=== PATIENT | female | born 1945 | race Caucasian/White ===

== ENCOUNTER 2017-09-04 20:51 | Inpatient (IN) | payer BC, MEDICARE ==
[~2017-09-04] VITALS: Ht 162.6 cm; Wt 53.1 kg
[~2017-09-04 20:51] MED LIST: BACL10TA PO; DULO30CA2 PO; LEVO125T8 PO; TIZA2TAB4 PO
[2017-09-04] MEDS ORDERED: ONDANSETRON 4 MG/2 ML VIAL IV ONE (22:00)
[2017-09-04] MEDS ORDERED: HYDROMORPHONE 1 MG/1 ML DISP.SYRIN IV ONE (22:00)
[2017-09-04 22:18] LABS: BASOPHILS # (AUTO) 0.1 K/uL (0.0-8.0); BASOPHILS % (AUTO) 2.2 % (0.0-2.0); EOSINOPHILS # (AUTO) 0.1 K/uL (0.0-0.7); EOSINOPHILS % (AUTO) 1.6 % (0.0-7.0); HEMATOCRIT 39.1 % (31.2-41.9); HEMOGLOBIN 13.4 g/dL (10.9-14.3); LYMPHOCYTES % (AUTO) 20.5 % (20.5-51.5); MEAN CORPUSCULAR HGB CONC 34 g/dL (32.3-35.6); MEAN CORPUSCULAR VOLUME 90.6 fL (75.5-95.3); MONOCYTES # (AUTO) 0.5 K/uL (2.0-10.0); MONOCYTES % (AUTO) 10.8 % (0.0-11.0); NEUTROPHILS # (AUTO) 3.3 K/uL (1.8-8.9); NEUTROPHILS % (AUTO) 64.9 % (38.5-71.5); PLATELET COUNT (AUTO) 202 K/uL (179-408); RED BLOOD CELL COUNT(AUTO) 4.32 MIL/uL (3.63-4.92); WHITE BLOOD COUNT (AUTO) 5.1 K/uL (3.8-11.8)
[2017-09-04 22:24] LABS: CARBON DIOXIDE 26 mmol/L (21-32); CHLORIDE 103 mmol/L (98-107); CREATININE 0.6 mg/dL (0.6-1.3); GLUCOSE 97 mg/dL (74-106); POTASSIUM 4.3 mmol/L (3.5-5.1); UREA NITROGEN, BLOOD 13 mg/dL (7-18)
[2017-09-04] MEDS ORDERED: ONDANSETRON 4 MG/2 ML VIAL ONE (22:29)
[2017-09-04] MEDS ORDERED: HYDROMORPHONE 1 MG/1 ML DISP.SYRIN ONE (22:29)
[2017-09-04 22:35] LABS: ALANINE AMINOTRANSFERASE 31 U/L (14-59); ALKALINE PHOSPHATASE 82 U/L (50-136); ASPARTATE AMINOTRANSFERASE 19 U/L (15-37); BILIRUBIN,DIRECT < 0.1 mg/dL (0.0-0.2); BILIRUBIN,TOTAL 0.2 mg/dL (0.2-1.0); LIPASE 173 U/L (73-393); TOTAL PROTEIN, SERUM 7.9 g/dL (6.4-8.2)
[2017-09-04] MEDS ORDERED: MAGNESIUM CITRATE 296 ML BOTTLE PO ONE (22:45)
[2017-09-04] MEDS ORDERED: MAGNESIUM HYDROXIDE 30 ML LIQUID UDC PO ONE (22:45)
[2017-09-04] MEDS ORDERED: MINERAL OIL FLEET ENEMA 133 ML BOTTLE RC ONE ×2 (22:45→23:06)
[2017-09-04] MEDS ORDERED: MAGNESIUM HYDROXIDE 30 ML LIQUID UDC ONE (23:06)
[2017-09-04] MEDS ORDERED: MAGNESIUM CITRATE 296 ML BOTTLE ONE (23:06)
[2017-09-05] MEDS ORDERED: MINERAL OIL FLEET ENEMA 133 ML BOTTLE RC ONE ×4 (00:30→06:53)
[2017-09-05 02:51] VITALS: BP 135/72
--- NOTE | 2017-09-05 02:55 | NUR ---
nsg: pt received a/o x 4 fr er via [facility] with dx of constipation. has hx of als. hasnt had bm x 4 days fr [facility]. v/s stable. cont to monitor.
--- NOTE | 2017-09-05 02:58 | NUR ---
Pt. admitted to [facility], under care of Cherise Silva [place]ongs List completed
--- NOTE | 2017-09-05 03:00 | NUR ---
nsg: paged Cherise Silva for admitting orders. awaiting response.
[2017-09-05] MEDS ORDERED: MAGNESIUM HYDROXIDE 30 ML LIQUID UDC PO PRN (04:15)
[2017-09-05] MEDS ORDERED: ZOLPIDEM 5 MG TABLET PO PRN (04:15)
[2017-09-05] MEDS ORDERED: Z GUARD REMEDY PASTE 57 GM TUBE TOP PRN (04:15)
[2017-09-05] MEDS ORDERED: ONDANSETRON 4 MG/2 ML VIAL IV PRN (04:15)
[2017-09-05 05:02] VITALS: BP 134/75
--- NOTE | 2017-09-05 06:06 | NUR ---
NSG: UNABLE TO GIVE FLEET MINERAL OIL ENEMA, MED NOT AVAILABLE.
[2017-09-05] MEDS: ACETAMINOPHEN 325 MG TABLET PO PRN ×2 (09:03→15:22)
[2017-09-05] MEDS: SENNOSIDES/DOCUSATE SODIUM TABLET PO SCH ×2 (09:03→09:10)
[2017-09-05 11:40] VITALS: BP 117/61
[2017-09-05] MEDS ORDERED: MAGNESIUM CITRATE 296 ML BOTTLE PO ONE (12:45)
[2017-09-05] MEDS ORDERED: GLYCERIN ADULT RECTAL SUPP EACH RC ONE ×3 (12:45→22:08)
[2017-09-05 16:10] VITALS: BP 137/74
[2017-09-05 19:00] VITALS: BP 138/69
--- NOTE | 2017-09-05 19:05 | NUR ---
PT IS IN BED RESTING WITH NO SIGNS OF RESPIRATORY DISTRESS. PT HAS NOT HAD A BM, REPORT GIVEN TO [facility]. PENDING FAX FROM [facility] IN REGARDS TO MEDICATION.
[2017-09-05] MEDS ORDERED: BACLOFEN 10 MG TABLET PO SCH (21:30)
[2017-09-05] MEDS ORDERED: Medication Not On Formulary EA (Tizanidine Hcl 2 MG) PO SCH (21:30)
[2017-09-05] MEDS: TIZANIDINE HCL 4 MG TABLET PO SCH (21:56)
[2017-09-05] MEDS ORDERED: TIZANIDINE HCL 4 MG TABLET ONE (22:09)
[2017-09-06 04:00] VITALS: BP 135/76
[2017-09-06] MEDS: TIZANIDINE HCL 4 MG TABLET PO SCH (06:00)
--- NOTE | 2017-09-06 06:00 | NUR ---
PT HAD another dose of laxative supp, then finally had a large bm, incontinent. muscle relaxant meds given, slept well,vss,afebrile, will continue to monitor,kept clean and dry.
[2017-09-06 06:34] LABS: BASOPHILS # (AUTO) 0.1 K/uL (0.0-8.0); BASOPHILS % (AUTO) 1.1 % (0.0-2.0); EOSINOPHILS # (AUTO) 0.1 K/uL (0.0-0.7); HEMATOCRIT 37.9 % (31.2-41.9); HEMOGLOBIN 12.8 g/dL (10.9-14.3); LYMPHOCYTES % (AUTO) 16.6 % (20.5-51.5); MEAN CORPUSCULAR HEMOGLOBIN 30.9 uug (24.7-32.8); MEAN CORPUSCULAR HGB CONC 34 g/dL (32.3-35.6); MEAN CORPUSCULAR VOLUME 91.4 fL (75.5-95.3); MONOCYTES # (AUTO) 0.7 K/uL (2.0-10.0); MONOCYTES % (AUTO) 10.6 % (0.0-11.0); NEUTROPHILS # (AUTO) 4.4 K/uL (1.8-8.9); NEUTROPHILS % (AUTO) 70.7 % (38.5-71.5); PLATELET COUNT (AUTO) 186 K/uL (179-408); RED BLOOD CELL COUNT(AUTO) 4.15 MIL/uL (3.63-4.92); WHITE BLOOD COUNT (AUTO) 6.2 K/uL (3.8-11.8)
[2017-09-06 08:17] LABS: CARBON DIOXIDE 27 mmol/L (21-32); CHLORIDE 104 mmol/L (98-107); CHOLESTEROL 172 mg/dL (<200); CREATININE 0.7 mg/dL (0.6-1.3); GLUCOSE 103 mg/dL (74-106); HDL CHOLESTEROL 83 mg/dL (40-60); MAGNESIUM 2.8 mg/dL (1.8-2.4); PHOSPHOROUS 3.2 mg/dL (2.5-4.9); POTASSIUM 4.3 mmol/L (3.5-5.1); TRIGLYCERIDES 37 MG/DL (30-150); UREA NITROGEN, BLOOD 13 mg/dL (7-18)
[2017-09-06] MEDS ORDERED: DULOXETINE 30 MG CAPSULE.DR PO SCH (09:00)
[2017-09-06] MEDS ORDERED: LEVOTHYROXINE SODIUM 125 MCG TABLET PO SCH (09:00)
[2017-09-06 09:12] LABS: THYROID STIMULATING HORMONE 0.095 mIU/mL (0.358-3.740)
[2017-09-06] MEDS: SENNOSIDES/DOCUSATE SODIUM TABLET PO SCH (09:38)
[2017-09-06] MEDS: ACETAMINOPHEN 325 MG TABLET PO PRN (09:59)
[2017-09-06] MEDS ORDERED: TIZA4CAP6 PO (10:24)
[2017-09-06] MEDS ORDERED: LEVO112T5 PO (10:24)
[2017-09-06] MEDS ORDERED: POLY255P2 PO (10:24)
[2017-09-06] MEDS ORDERED: BACL20TA PO (10:24)
[2017-09-06] MEDS ORDERED: DOCU-141 PO (10:29)
[2017-09-06] MEDS ORDERED: LORA0.5T PO (10:29)
[2017-09-06] MEDS ORDERED: HYDR-4209 PO (10:29)
[2017-09-06] MEDS ORDERED: GABA600T2 PO (10:29)
[2017-09-06] MEDS ORDERED: TRAM50TA2 PO (10:29)
[2017-09-06] MEDS ORDERED: DEXT15DR27 EACHEYE (10:30)
[2017-09-06 12:01] VITALS: BP 113/71
[2017-09-06] MEDS ORDERED: LEVO88TA5 PO (14:51)
[2017-09-06] MEDS ORDERED: MAGN296S PO (14:51)
[2017-09-06 15:50] VITALS: BP 113/71
--- NOTE | 2017-09-06 15:50 | NUR ---
PT D/C TO [facility]. PT IS STABLE, ALERT AND D/C WITH ALL BELONGINGS, VALUABLES, AND EXIT-CARE PACKET.
[2017-09-06] MEDS ORDERED: TIZANIDINE HCL 4 MG TABLET PO SCH (21:00)
[2017-09-07] MEDS ORDERED: LEVOTHYROXINE SODIUM 75 MCG TABLET PO SCH (07:00)
== END 2017-09-06 15:50 | DRG 389 ==
LOC: ER 20:51 → MED 09-05 01:30
PROVIDERS: ADMIT Nurse Practitioner Acute Care; ATTEND Internal Medicine
DX: K56.41 Fecal impaction (principal); G12.21 Amyotrophic lateral sclerosis; D68.59 Other primary thrombophilia; J98.11 Atelectasis; E03.9 Hypothyroidism, unspecified; Z90.49 Acquired absence of other specified parts of digestive tract; N20.0 Calculus of kidney; Z74.09 Other reduced mobility; F32.9 Major depressive disorder, single episode, unspecified; Z79.899 Other long term (current) drug therapy; E05.90 Thyrotoxicosis, unspecified without thyrotoxic crisis or storm; F41.9 Anxiety disorder, unspecified; K57.30 Diverticulosis of large intestine without perforation or abscess without bleeding; E05.80 Other thyrotoxicosis without thyrotoxic crisis or storm; T38.1X5A Adverse effect of thyroid hormones and substitutes, initial encounter; Y92.099 Unspecified place in other non-institutional residence as the place of occurrence of the external cause
CPT/HCPCS: 36415; 83690; 83735; 84100; 84443; 85025; A4663; J1170; J2405

== ENCOUNTER 2018-10-19 18:09 | Inpatient (IN) | payer BC ==
[~2018-10-19] VITALS: Ht 149.9 cm; Wt 58.1 kg
[~2018-10-19 18:09] MED LIST changes: -BACL10TA PO; +BACL20TA PO; +DEXT15DR27 EACHEYE; +DOCU-141 PO; -DULO30CA2 PO; +GABA600T12 PO; +HYDR-4209 PO; +LEVO112T5 PO; -LEVO125T8 PO; +LEVO88TA5 PO; +LORA0.5T PO; +MAGN296S70 PO; +POLY255P19 PO; -TIZA2TAB4 PO; +TIZA4CAP6 PO; +TRAM50TA2 PO
[2018-10-19 19:06] LABS: ABG BASE EXCESS -0.2 mmol/L; ABG HCO3 24.3 mmol/L; ABG PCO2 39.1 mmHg (35.0-45.0); ABG PH 7.411 (7.350-7.450); ABG PO2 149.3 mmHg (75.0-100.0); ABG SITE RIGHT RADIAL; ABG TOTAL HEMOGLOBIN 12.1 G/dL (12.0-16.0); COHb 1.4 % (0.5-1.5); MetHb 0.2 % (0.0-1.5); O2Hb 97.7 % (94.0-97.0); VENT MODE Nasal Cannula
[2018-10-19 19:08] LABS: BASOPHILS # (AUTO) 0.1 K/uL (0.0-8.0); BASOPHILS % (AUTO) 2.1 % (0.0-2.0); EOSINOPHILS # (AUTO) 0.4 K/uL (0.0-0.7); EOSINOPHILS % (AUTO) 9.4 % (0.0-7.0); HEMATOCRIT 34.3 % (31.2-41.9); HEMOGLOBIN 11.4 g/dL (10.9-14.3); LYMPHOCYTES # (AUTO) 1.2 K/uL (20.0-40.0); LYMPHOCYTES % (AUTO) 26.8 % (20.5-51.5); MEAN CORPUSCULAR HEMOGLOBIN 31.3 uug (24.7-32.8); MEAN CORPUSCULAR HGB CONC 33 g/dL (32.3-35.6); MEAN CORPUSCULAR VOLUME 94.1 fL (75.5-95.3); MONOCYTES # (AUTO) 0.6 K/uL (2.0-10.0); MONOCYTES % (AUTO) 11.8 % (0.0-11.0); NEUTROPHILS # (AUTO) 2.3 K/uL (1.8-8.9); NEUTROPHILS % (AUTO) 49.9 % (38.5-71.5); PLATELET COUNT (AUTO) 174 K/uL (179-408); RED BLOOD CELL COUNT(AUTO) 3.64 MIL/uL (3.63-4.92); WHITE BLOOD COUNT (AUTO) 4.7 K/uL (3.8-11.8)
[2018-10-19 19:18] LABS: CARBON DIOXIDE 28 mmol/L (21-32); CHLORIDE 99 mmol/L (98-107); CREATININE 0.7 mg/dL (0.6-1.3); GLUCOSE 117 mg/dL (74-106); UREA NITROGEN, BLOOD 24 mg/dL (7-18)
[2018-10-19 19:34] LABS: ALANINE AMINOTRANSFERASE 1057 U/L (14-59); ALKALINE PHOSPHATASE 224 U/L (50-136); ASPARTATE AMINOTRANSFERASE 1339 U/L (15-37); BILIRUBIN,DIRECT 0.5 mg/dL (0.0-0.2); TOTAL PROTEIN, SERUM 7.8 g/dL (6.4-8.2)
[2018-10-19 19:38] LABS: THYROID STIMULATING HORMONE 3.378 mIU/mL (0.358-3.740)
[2018-10-19] MEDS ORDERED: LORAZEPAM 2 MG/1 ML VIAL IV ONE (19:45)
[2018-10-19] MEDS ORDERED: IBUP-1955 PO (20:01)
[2018-10-19] MEDS ORDERED: LIVAPLEX PO (20:01)
[2018-10-19] MEDS ORDERED: SIME80TA15 PO (20:01)
[2018-10-19] MEDS ORDERED: ONDA4TAB11 PO (20:01)
[2018-10-19] MEDS ORDERED: SERT25TA PO (20:01)
[2018-10-19] MEDS ORDERED: CETI-102 PO (20:01)
[2018-10-19] MEDS ORDERED: ACET-73 PO (20:01)
[2018-10-19] MEDS ORDERED: LACT1CAP69 PO (20:01)
[2018-10-19] MEDS ORDERED: ZOLP5TAB8 PO (20:01)
[2018-10-19] MEDS ORDERED: INOS500T PO (20:01)
[2018-10-19] MEDS ORDERED: [UNRECOGNIZED DRUG - OTHER] PO (20:01)
[2018-10-19] MEDS ORDERED: DEXT15DR6 OP (20:01)
[2018-10-19] MEDS ORDERED: DRENAMIN PO (20:01)
[2018-10-19] MEDS ORDERED: MENT71OI TP (20:01)
[2018-10-19] MEDS ORDERED: MAGN400O6 PO (20:01)
[2018-10-19] MEDS ORDERED: SENN-168 PO (20:01)
[2018-10-19] MEDS ORDERED: DANT25CA PO (20:01)
[2018-10-19] MEDS ORDERED: LORAZEPAM 2 MG/1 ML VIAL ONE (20:06)
[2018-10-19 20:07] LABS: LIPASE 103 U/L (73-393)
[2018-10-19 20:10] LABS: ACETAMINOPHEN < 2.0 ug/mL (10-30)
[2018-10-19] MEDS ORDERED: GABAPENTIN 300 MG CAPSULE PO ONE (20:30)
[2018-10-19] MEDS ORDERED: IV NS 1000 ML 1,000 ML IV ONE (20:30)
[2018-10-19] MEDS ORDERED: BACLOFEN 10 MG TABLET PO ONE (20:30)
[2018-10-19] MEDS ORDERED: BACLOFEN 10 MG TABLET ONE (20:39)
[2018-10-19] MEDS ORDERED: GABAPENTIN 300 MG CAPSULE ONE (20:39)
[2018-10-19 21:11] LABS: *BILIRUBIN,URIN 1+ (NEGATIVE); *BLOOD, URINE Trace-lysed (NEGATIVE); *CLARITY,URINE CLOUDY (CLEAR); *COLOR,URINE DARK YELLOW (YELLOW); *KETONES,URINE TRACE (NEGATIVE); *UROBILINOGEN,URINE 0.2 E.U./dl (NORMAL); LEUKOCYTE ESTERASE ,URINE TRACE (NEGATIVE); NITRITE, URINE NEGATIVE (NEGATIVE); PH,URINE 7.5 (5.0-8.0); UGLUCOSE NEGATIVE (NEGATIVE)
[2018-10-19 21:15] LABS: BACTERIA,URINE FEW /HPF (NONE SEEN); RBC,URINE 0-3 /HPF (0-3); SQUAMOUS EPITHELIAL CELL,UR FEW /HPF (NONE SEEN)
[2018-10-19] MEDS ORDERED: ASPIRIN 300 MG RECTAL SUPP RC ONE ×2 (22:00→22:06)
[2018-10-19] MEDS ORDERED: ALBUTEROL SULFATE 2.5 MG/3 ML NEBU NEB PRN (23:00)
[2018-10-19] MEDS ORDERED: ONDANSETRON 4 MG/2 ML VIAL IV PRN (23:00)
[2018-10-19] MEDS ORDERED: IBUPROFEN 600 MG TABLET PO PRN (23:00)
[2018-10-19] MEDS ORDERED: IPRATROPIUM BROMIDE 0.5 MG/2.5 ML NEBU NEB PRN (23:00)
[2018-10-20] MEDS: IV D5 1/2 NS 1000 ML 1,000 ML IV PRN ×2 (00:20→16:03)
[2018-10-20 00:29] VITALS: BP 122/71
[2018-10-20] MEDS ORDERED: Z GUARD REMEDY PASTE 57 GM TUBE TOP PRN (00:45)
[2018-10-20] MEDS: LEVOTHYROXINE SODIUM 88 MCG TABLET PO SCH (06:03)
[2018-10-20] MEDS: TRAMADOL HCL 50 MG TABLET PO PRN (06:03)
[2018-10-20 06:41] LABS: BASOPHILS # (AUTO) 0.1 K/uL (0.0-8.0); EOSINOPHILS # (AUTO) 0.3 K/uL (0.0-0.7); EOSINOPHILS % (AUTO) 7.9 % (0.0-7.0); HEMATOCRIT 32.5 % (31.2-41.9); HEMOGLOBIN 10.8 g/dL (10.9-14.3); LYMPHOCYTES # (AUTO) 0.6 K/uL (20.0-40.0); LYMPHOCYTES % (AUTO) 12.9 % (20.5-51.5); MEAN CORPUSCULAR HEMOGLOBIN 31.2 uug (24.7-32.8); MEAN CORPUSCULAR HGB CONC 33 g/dL (32.3-35.6); MEAN CORPUSCULAR VOLUME 94.1 fL (75.5-95.3); MONOCYTES # (AUTO) 0.4 K/uL (2.0-10.0); MONOCYTES % (AUTO) 10.1 % (0.0-11.0); NEUTROPHILS # (AUTO) 2.9 K/uL (1.8-8.9); NEUTROPHILS % (AUTO) 67.1 % (38.5-71.5); PLATELET COUNT (AUTO) 154 K/uL (179-408); RED BLOOD CELL COUNT(AUTO) 3.45 MIL/uL (3.63-4.92); WHITE BLOOD COUNT (AUTO) 4.3 K/uL (3.8-11.8)
[2018-10-20 06:55] LABS: ALANINE AMINOTRANSFERASE 734 U/L (14-59); ALKALINE PHOSPHATASE 194 U/L (50-136); ASPARTATE AMINOTRANSFERASE 645 U/L (15-37); BILIRUBIN,TOTAL 0.5 mg/dL (0.2-1.0); CARBON DIOXIDE 28 mmol/L (21-32); CHLORIDE 104 mmol/L (98-107); CHOLESTEROL 159 mg/dL (<200); CREATININE 0.6 mg/dL (0.6-1.3); GLUCOSE 104 mg/dL (74-106); HDL CHOLESTEROL 80 mg/dL (40-60); MAGNESIUM 3.1 mg/dL (1.8-2.4); PHOSPHOROUS 3.7 mg/dL (2.5-4.9); POTASSIUM 4.1 mmol/L (3.5-5.1); TOTAL PROTEIN, SERUM 6.8 g/dL (6.4-8.2); TRIGLYCERIDES 38 MG/DL (30-150); UREA NITROGEN, BLOOD 19 mg/dL (7-18)
[2018-10-20 06:59] LABS: THYROID STIMULATING HORMONE 2.359 mIU/mL (0.358-3.740)
[2018-10-20 07:10] LABS: LIPASE 108 U/L (73-393)
[2018-10-20] MEDS ORDERED: GABAPENTIN 400 MG CAPSULE PO SCH (09:00)
[2018-10-20] MEDS ORDERED: GABAPENTIN PO SCH ×2 (09:00)
[2018-10-20] MEDS: BACLOFEN 20 MG TABLET PO SCH ×3 (09:59→17:48)
[2018-10-20] MEDS: DOCUSATE SODIUM 100 MG CAPSULE PO SCH ×2 (09:59→17:48)
[2018-10-20] MEDS ORDERED: CEFTRIAXONE 1 G in IV DEXTROSE 5% 50 ML IV SCH (10:00)
[2018-10-20] MEDS: GABAPENTIN 300 MG CAPSULE PO SCH ×3 (10:00→17:48)
[2018-10-20] MEDS: CEFTRIAXONE 1 G in IV DEXTROSE 5% 50 ML IV SCH (11:23)
[2018-10-20 11:29] VITALS: BP 149/78
[2018-10-20 15:19] VITALS: BP 141/76
[2018-10-20 17:46] LABS: IRON, SERUM 91 ug/dL (50-175)
[2018-10-20 17:59] LABS: FERRITIN 355 ng/mL (8-252)
[2018-10-20 20:01] VITALS: BP 138/65
[2018-10-20] MEDS: ZOLPIDEM 5 MG TABLET PO PRN (21:43)
[2018-10-20 23:56] LABS: *AMPHETAMINE, URINE NEGATIVE (NEGATIVE); *BARBITURATE, URINE NEGATIVE (NEGATIVE); *CANNABINOID, URINE NEGATIVE (NEGATIVE); *COCCAINE, URINE NEGATIVE (NEGATIVE); *OPIATE, URINE NEGATIVE (NEGATIVE); *PHENCYCLIDINE SCREEN,URINE NEGATIVE (NEGATIVE)
[2018-10-21] MEDS: TRAMADOL HCL 50 MG TABLET PO PRN (03:32)
[2018-10-21 04:02] VITALS: BP 149/69
[2018-10-21] MEDS: IV D5 1/2 NS 1000 ML 1,000 ML IV PRN (04:28)
[2018-10-21] MEDS: LEVOTHYROXINE SODIUM 88 MCG TABLET PO SCH (06:24)
[2018-10-21 07:59] LABS: BASOPHILS % (AUTO) 1.3 % (0.0-2.0); HEMATOCRIT 34.5 % (31.2-41.9); HEMOGLOBIN 11.4 g/dL (10.9-14.3); LYMPHOCYTES # (AUTO) 0.6 K/uL (20.0-40.0); LYMPHOCYTES % (AUTO) 16.7 % (20.5-51.5); MEAN CORPUSCULAR HEMOGLOBIN 31.1 uug (24.7-32.8); MEAN CORPUSCULAR HGB CONC 33 g/dL (32.3-35.6); MEAN CORPUSCULAR VOLUME 94.1 fL (75.5-95.3); MONOCYTES # (AUTO) 0.4 K/uL (2.0-10.0); MONOCYTES % (AUTO) 10.8 % (0.0-11.0); NEUTROPHILS # (AUTO) 2.7 K/uL (1.8-8.9); NEUTROPHILS % (AUTO) 70.2 % (38.5-71.5); PLATELET COUNT (AUTO) 167 K/uL (179-408); RED BLOOD CELL COUNT(AUTO) 3.66 MIL/uL (3.63-4.92); WHITE BLOOD COUNT (AUTO) 3.9 K/uL (3.8-11.8)
[2018-10-21 08:14] LABS: ALANINE AMINOTRANSFERASE 496 U/L (14-59); ALKALINE PHOSPHATASE 182 U/L (50-136); ASPARTATE AMINOTRANSFERASE 226 U/L (15-37); BILIRUBIN,DIRECT 0.1 mg/dL (0.0-0.2); BILIRUBIN,TOTAL 0.3 mg/dL (0.2-1.0); CARBON DIOXIDE 25 mmol/L (21-32); CHLORIDE 106 mmol/L (98-107); CREATININE 0.5 mg/dL (0.6-1.3); GLUCOSE 110 mg/dL (74-106); POTASSIUM 3.8 mmol/L (3.5-5.1); TOTAL PROTEIN, SERUM 7.2 g/dL (6.4-8.2); UREA NITROGEN, BLOOD 8 mg/dL (7-18)
[2018-10-21] MEDS: PANTOPRAZOLE SODIUM 40 MG VIAL IV SCH (08:31)
[2018-10-21] MEDS: BACLOFEN 20 MG TABLET PO SCH ×3 (09:00→17:25)
[2018-10-21] MEDS: DOCUSATE SODIUM 100 MG CAPSULE PO SCH ×2 (09:00→17:24)
[2018-10-21] MEDS: GABAPENTIN 300 MG CAPSULE PO SCH ×3 (09:00→17:25)
[2018-10-21 11:07] LABS: HEPATITIS A AB, IgM Negative (Negative); HEPATITIS A AB, TOTAL Positive (Negative); HEPATITIS B SURFACE AB Non Reactive (.); HEPATITIS B SURFACE AG Negative (Negative)
[2018-10-21 12:16] VITALS: BP 146/71
[2018-10-21] MEDS: CEFTRIAXONE 1 G in IV DEXTROSE 5% 50 ML IV SCH (12:49)
[2018-10-21] MEDS ORDERED: GADODIAMIDE 5 MMOL/10 ML VIAL ONE (17:06)
[2018-10-21] MEDS ORDERED: GADODIAMIDE 2.5 MMOL/5 ML VIAL ONE (17:06)
[2018-10-21 18:01] LABS: *OCCULT BLOOD STOOL NEGATIVE (NEGATIVE)
[2018-10-21 20:16] VITALS: BP 140/73
[2018-10-21] MEDS: ZOLPIDEM 5 MG TABLET PO PRN (21:43)
[2018-10-22 00:13] VITALS: BP 162/90
[2018-10-22] MEDS: IV D5 1/2 NS 1000 ML 1,000 ML IV PRN ×2 (00:33→16:28)
[2018-10-22] MEDS: LEVOTHYROXINE SODIUM 88 MCG TABLET PO SCH (05:54)
[2018-10-22 06:06] LABS: BASOPHILS % (AUTO) 0.8 % (0.0-2.0); EOSINOPHILS % (AUTO) 0.9 % (0.0-7.0); HEMATOCRIT 33.3 % (31.2-41.9); HEMOGLOBIN 10.9 g/dL (10.9-14.3); LYMPHOCYTES # (AUTO) 0.5 K/uL (20.0-40.0); LYMPHOCYTES % (AUTO) 12.7 % (20.5-51.5); MEAN CORPUSCULAR HEMOGLOBIN 30.8 uug (24.7-32.8); MEAN CORPUSCULAR HGB CONC 33 g/dL (32.3-35.6); MEAN CORPUSCULAR VOLUME 94.2 fL (75.5-95.3); MONOCYTES # (AUTO) 0.4 K/uL (2.0-10.0); MONOCYTES % (AUTO) 9.2 % (0.0-11.0); NEUTROPHILS # (AUTO) 3.2 K/uL (1.8-8.9); NEUTROPHILS % (AUTO) 76.4 % (38.5-71.5); PLATELET COUNT (AUTO) 162 K/uL (179-408); RED BLOOD CELL COUNT(AUTO) 3.53 MIL/uL (3.63-4.92); WHITE BLOOD COUNT (AUTO) 4.3 K/uL (3.8-11.8)
[2018-10-22 06:10] LABS: HEPATITIS Be ANTIGEN Negative (Negative)
[2018-10-22 06:12] LABS: CARBON DIOXIDE 25 mmol/L (21-32); CHLORIDE 107 mmol/L (98-107); CREATININE 0.4 mg/dL (0.6-1.3); GLUCOSE 116 mg/dL (74-106); POTASSIUM 4.1 mmol/L (3.5-5.1); UREA NITROGEN, BLOOD 7 mg/dL (7-18)
[2018-10-22 06:32] VITALS: BP 135/71
[2018-10-22] MEDS: PANTOPRAZOLE SODIUM 40 MG VIAL IV SCH (09:15)
[2018-10-22] MEDS: DOCUSATE SODIUM 100 MG CAPSULE PO SCH ×2 (09:15→17:15)
[2018-10-22] MEDS: GABAPENTIN 300 MG CAPSULE PO SCH ×3 (09:15→17:14)
[2018-10-22] MEDS: BACLOFEN 20 MG TABLET PO SCH ×3 (10:27→17:14)
[2018-10-22] MEDS: CEFTRIAXONE 1 G in IV DEXTROSE 5% 50 ML IV SCH (10:30)
[2018-10-22 12:05] VITALS: BP 157/76
[2018-10-22] MEDS: TRAMADOL HCL 50 MG TABLET PO PRN (12:30)
[2018-10-22 15:08] LABS: *ANTI-SCLERODERMA-70 AB <0.2 AI (0.0-0.9); *SJOGREN'S ANTI-SS-A <0.2 AI (0.0-0.9); *SJOGREN'S ANTI-SS-B <0.2 AI (0.0-0.9); *SMITH ANTIBODIES <0.2 AI (0.0-0.9); ANTI-DNA(DS) AB, QN 4 IU/mL (0-9)
[2018-10-22 16:00] VITALS: BP 142/70
[2018-10-22 20:01] VITALS: BP 113/61
[2018-10-22] MEDS: ZOLPIDEM 5 MG TABLET PO PRN (22:37)
[2018-10-23 04:00] VITALS: BP 126/62
[2018-10-23 04:06] LABS: *IGG SUBCLASS 1 655 mg/dL (248-810); *IGG SUBCLASS 2 187 mg/dL (130-555); *IGG SUBCLASS 3 136 mg/dL (15-102); *IGG SUBCLASS 4 28 mg/dL (2-96); *IMMUNOGLOBULIN G, SERUM 992 mg/dL (700-1600)
[2018-10-23] MEDS: IV D5 1/2 NS 1000 ML 1,000 ML IV PRN (04:37)
[2018-10-23] MEDS: LEVOTHYROXINE SODIUM 88 MCG TABLET PO SCH (06:11)
[2018-10-23 07:28] LABS: BASOPHILS # (AUTO) 0.1 K/uL (0.0-8.0); BASOPHILS % (AUTO) 1.8 % (0.0-2.0); EOSINOPHILS # (AUTO) 0.2 K/uL (0.0-0.7); EOSINOPHILS % (AUTO) 5.7 % (0.0-7.0); HEMATOCRIT 32.1 % (31.2-41.9); HEMOGLOBIN 10.7 g/dL (10.9-14.3); LYMPHOCYTES # (AUTO) 0.7 K/uL (20.0-40.0); LYMPHOCYTES % (AUTO) 19.6 % (20.5-51.5); MEAN CORPUSCULAR HEMOGLOBIN 31.2 uug (24.7-32.8); MEAN CORPUSCULAR HGB CONC 33 g/dL (32.3-35.6); MEAN CORPUSCULAR VOLUME 93.9 fL (75.5-95.3); MONOCYTES # (AUTO) 0.4 K/uL (2.0-10.0); MONOCYTES % (AUTO) 11.6 % (0.0-11.0); NEUTROPHILS # (AUTO) 2.3 K/uL (1.8-8.9); NEUTROPHILS % (AUTO) 61.3 % (38.5-71.5); PLATELET COUNT (AUTO) 167 K/uL (179-408); RED BLOOD CELL COUNT(AUTO) 3.42 MIL/uL (3.63-4.92); WHITE BLOOD COUNT (AUTO) 3.7 K/uL (3.8-11.8)
[2018-10-23 07:38] LABS: ALANINE AMINOTRANSFERASE 272 U/L (14-59); ALKALINE PHOSPHATASE 132 U/L (50-136); ASPARTATE AMINOTRANSFERASE 88 U/L (15-37); BILIRUBIN,DIRECT 0.1 mg/dL (0.0-0.2); BILIRUBIN,TOTAL 0.3 mg/dL (0.2-1.0); CARBON DIOXIDE 25 mmol/L (21-32); CHLORIDE 106 mmol/L (98-107); CREATININE 0.4 mg/dL (0.6-1.3); GLUCOSE 100 mg/dL (74-106); POTASSIUM 4.1 mmol/L (3.5-5.1); TOTAL PROTEIN, SERUM 6.6 g/dL (6.4-8.2); UREA NITROGEN, BLOOD 8 mg/dL (7-18)
[2018-10-23 07:39] LABS: BILIRUBIN,DIRECT 0.1 mg/dL (0.0-0.2); BILIRUBIN,TOTAL 0.2 mg/dL (0.2-1.0)
[2018-10-23] MEDS: GABAPENTIN 300 MG CAPSULE PO SCH ×2 (09:00→12:25)
[2018-10-23] MEDS: BACLOFEN 20 MG TABLET PO SCH ×2 (09:00→12:25)
[2018-10-23] MEDS: TRAMADOL HCL 50 MG TABLET PO PRN (09:01)
[2018-10-23] MEDS: PANTOPRAZOLE SODIUM 40 MG VIAL IV SCH (09:01)
[2018-10-23] MEDS: DOCUSATE SODIUM 100 MG CAPSULE PO SCH (09:01)
[2018-10-23] MEDS ORDERED: CEPH500C2 PO (09:44)
[2018-10-23] MEDS: CEFTRIAXONE 1 G in IV DEXTROSE 5% 50 ML IV SCH (10:56)
[2018-10-23 11:26] VITALS: BP 157/79
[2018-10-24] MEDS ORDERED: PANTOPRAZOLE SODIUM 40 MG TABLET.DR PO SCH (09:00)
== END 2018-10-23 13:25 | DRG 444 ==
LOC: ER 18:09 → TELE3 23:07 → MEDSURG3 10-20 13:40
PROVIDERS: ATTEND Nurse Practitioner Acute Care
DX: K83.9 Disease of biliary tract, unspecified (principal); G93.41 Metabolic encephalopathy; J96.21 Acute and chronic respiratory failure with hypoxia; N39.0 Urinary tract infection, site not specified; G12.23 Primary lateral sclerosis; D68.59 Other primary thrombophilia; E44.1 Mild protein-calorie malnutrition; J98.11 Atelectasis; K56.7 Ileus, unspecified; G12.21 Amyotrophic lateral sclerosis; E86.0 Dehydration; E03.9 Hypothyroidism, unspecified; Z90.49 Acquired absence of other specified parts of digestive tract; Z79.890 Hormone replacement therapy; F32.9 Major depressive disorder, single episode, unspecified; G89.4 Chronic pain syndrome; D69.6 Thrombocytopenia, unspecified; E83.41 Hypermagnesemia; Z68.25 Body mass index [BMI] 25.0-25.9, adult; Z86.73 Personal history of transient ischemic attack (TIA), and cerebral infarction without residual deficits; R73.9 Hyperglycemia, unspecified; I08.3 Combined rheumatic disorders of mitral, aortic and tricuspid valves; Z91.5 Personal history of self-harm
CPT/HCPCS: 36415; 36600; 70030-TC; 70450; 70553; 71045; 74018; 74181; 76700; 80307; 82390; 83550; 83605; 83690; 83735; 84100; 84443; 85025; 85730; 86038; 86704; 86705; 86706; 86708; 86709; 86803; 87040; 87077; 87086; 87340; 87350; 92523; 92526; 93005; 93307; 94664; 97110; A4663; A9579; C9113; G0378; G0480-TC; J0696; J2060; J3490; J3590; J7030; J7060

== ENCOUNTER 2018-11-30 22:32 | Inpatient (IN) | payer BC ==
[~2018-11-30] VITALS: Ht 165.1 cm; Wt 52.2 kg
[~2018-11-30 22:32] MED LIST changes: +ACET-73 PO; +CEPH500C2 PO; +CETI-102 PO; +DANT25CA PO; +DEXT15DR6 OP; +DRENAMIN PO; -HYDR-4209 PO; +IBUP-1955 PO; +INOS500T PO; +LACT1CAP69 PO; -LEVO112T5 PO; +LIVAPLEX PO; +MAGN400O6 PO; +MENT71OI TP; +ONDA4TAB11 PO; +SENN-168 PO; +SERT25TA PO; +SIME80TA15 PO; +ZOLP5TAB8 PO; +[UNRECOGNIZED DRUG - OTHER] PO
[2018-11-30 23:31] LABS: BASOPHILS # (AUTO) 0.1 K/uL (0.0-8.0); BASOPHILS % (AUTO) 2.9 % (0.0-2.0); EOSINOPHILS # (AUTO) 0.2 K/uL (0.0-0.7); EOSINOPHILS % (AUTO) 6.2 % (0.0-7.0); HEMATOCRIT 34.3 % (31.2-41.9); HEMOGLOBIN 11.4 g/dL (10.9-14.3); LYMPHOCYTES # (AUTO) 1.1 K/uL (20.0-40.0); LYMPHOCYTES % (AUTO) 30.6 % (20.5-51.5); MEAN CORPUSCULAR HEMOGLOBIN 31.2 uug (24.7-32.8); MEAN CORPUSCULAR HGB CONC 33 g/dL (32.3-35.6); MONOCYTES # (AUTO) 0.3 K/uL (2.0-10.0); MONOCYTES % (AUTO) 9.2 % (0.0-11.0); NEUTROPHILS # (AUTO) 1.9 K/uL (1.8-8.9); NEUTROPHILS % (AUTO) 51.1 % (38.5-71.5); PLATELET COUNT (AUTO) 159 K/uL (179-408); RED BLOOD CELL COUNT(AUTO) 3.65 MIL/uL (3.63-4.92); WHITE BLOOD COUNT (AUTO) 3.7 K/uL (3.8-11.8)
[2018-11-30] MEDS ORDERED: LORA0.5T PO (23:32)
[2018-11-30 23:34] LABS: CARBON DIOXIDE 27 mmol/L (21-32); CHLORIDE 103 mmol/L (98-107); CREATININE 0.6 mg/dL (0.6-1.3); GLUCOSE 120 mg/dL (74-106); UREA NITROGEN, BLOOD 14 mg/dL (7-18)
--- NOTE | 2018-11-30 23:39 | NUR ---
PT IS IN ROOM #1A. DR GARRIDO EVALUATED THE PT.
[2018-11-30 23:46] LABS: ALANINE AMINOTRANSFERASE 34 U/L (14-59); ALKALINE PHOSPHATASE 104 U/L (50-136); ASPARTATE AMINOTRANSFERASE 27 U/L (15-37); BILIRUBIN,DIRECT 0.1 mg/dL (0.0-0.2); BILIRUBIN,TOTAL 0.1 mg/dL (0.2-1.0); TOTAL PROTEIN, SERUM 7.4 g/dL (6.4-8.2)
[2018-11-30 23:48] LABS: ABG BASE EXCESS -0.5 mmol/L; ABG HCO3 23.8 mmol/L; ABG PCO2 37.8 mmHg (35.0-45.0); ABG PH 7.417 (7.350-7.450); ABG PO2 66.2 mmHg (75.0-100.0); ABG SITE LEFT RADIAL; COHb 0.9 % (0.5-1.5); MetHb 0.1 % (0.0-1.5); O2Hb 92.8 % (94.0-97.0); VENT MODE room air
[2018-12-01 02:20] VITALS: BP 146/81
--- NOTE | 2018-12-01 02:27 | NUR ---
PT WAS TRANSFERED TO ROOM #319. REPORT WAS GIVEN TO COGNOS TM1 DEVELOPER.
[2018-12-01] MEDS ORDERED: TRAMADOL HCL 50 MG TABLET PO PRN (02:30)
[2018-12-01] MEDS ORDERED: MAGNESIUM HYDROXIDE 30 ML LIQUID UDC PO PRN (02:30)
[2018-12-01] MEDS ORDERED: LORAZEPAM 0.5 MG TABLET PO PRN (02:30)
[2018-12-01] MEDS ORDERED: ONDANSETRON 4 MG/2 ML VIAL IV PRN (02:30)
[2018-12-01] MEDS ORDERED: ACETAMINOPHEN 325 MG TABLET PO PRN (02:30)
[2018-12-01] MEDS ORDERED: Z GUARD REMEDY PASTE 57 GM TUBE TOP PRN (02:30)
[2018-12-01] MEDS ORDERED: IBUPROFEN 600 MG TABLET PO PRN (02:30)
--- NOTE | 2018-12-01 03:00 | NUR ---
RECEIVED PATIENT FROM ER. DX: SOB. PATIENT IS A/O X4, JUST VERY SOFT SPOKEN, BUT ABLE TO MAKE NEEDS KNOWN. PATIENT IS UNABLE TO AMBULATED. ORIENTED PATIENT TO ROOM AND UNIT. NO SIGNS OF ACUTE DISTRESS NOTED. NO COMPLAINTS OF PAIN. STATED THAT SHE IS FEELING SOB, O2 IS AT 97% ON ROOM AIR, BUT PUT PATIENT ON2L NC. WILL CONTINUE WITH ADMISSION PROCESS.
[2018-12-01] MEDS: IV NS 1000 ML 1,000 ML IV PRN ×2 (03:18→22:23)
[2018-12-01 04:00] VITALS: BP 144/76
[2018-12-01] MEDS ORDERED: INOSITOL PO SCH (08:00)
--- NOTE | 2018-12-01 08:00 | NUR ---
AWAKE ALERT AND VERBALLY RESPONSIVE NO SS OF DISTRESS WITH O2 3L NC SATURATING 97%. WILL FOLLOW-UP NPO STATUS WITH BLOOD OR BLOOD BANK TECHNICIAN
[2018-12-01] MEDS ORDERED: IOHEXOL 350 100 ML INFUS..BTL ONE (08:04)
[2018-12-01] MEDS ORDERED: IV NORMAL SALINE 250 ML IV ONE (08:04)
[2018-12-01] MEDS ORDERED: SWABABLE VALVE TRANSFER SET EA MC ONE (08:04)
[2018-12-01] MEDS: TIZANIDINE HCL 4 MG TABLET PO SCH ×2 (08:40→16:57)
[2018-12-01] MEDS: DOCUSATE SODIUM 100 MG CAPSULE PO SCH ×3 (08:40→16:56)
[2018-12-01] MEDS: GABAPENTIN 300 MG CAPSULE PO SCH ×3 (08:40→16:57)
[2018-12-01] MEDS: SIMETHICONE 80 MG TAB.CHEW PO SCH ×2 (08:40→16:57)
[2018-12-01] MEDS: BACLOFEN 20 MG TABLET PO SCH ×3 (08:40→16:57)
[2018-12-01] MEDS: SERTRALINE HCL 50 MG TABLET PO SCH (08:41)
[2018-12-01] MEDS: ENOXAPARIN SODIUM 40 MG/0.4 ML DISP.SYRIN SQ SCH (08:43)
[2018-12-01] MEDS: Z GUARD REMEDY PASTE 57 GM TUBE TOP SCH ×3 (08:47→16:57)
[2018-12-01] MEDS: LEVOTHYROXINE SODIUM 88 MCG TABLET PO SCH (08:52)
[2018-12-01] MEDS ORDERED: CALMOSEPTINE 113 GM OINTMENT TP SCH (09:00)
[2018-12-01] MEDS ORDERED: DANTROLENE SODIUM 25 MG CAPSULE PO SCH (09:00)
[2018-12-01] MEDS ORDERED: POLYETHYLENE GLYCOL 3350 238 GM POWDER PO SCH (09:00)
[2018-12-01] MEDS ORDERED: Medication Not On Formulary EA (Gabapentin 600 MG) PO SCH (09:00)
[2018-12-01] MEDS ORDERED: Medication Not On Formulary EA (Sertraline Hcl (Zoloft) 25 MG) PO SCH (09:00)
--- NOTE | 2018-12-01 09:00 | NUR ---
SEEN BY SUSY FOR FOLLOW-UP SEE NOTES
[2018-12-01 10:37] LABS: *BILIRUBIN,URIN NEGATIVE (NEGATIVE); *BLOOD, URINE NEGATIVE (NEGATIVE); *CLARITY,URINE CLEAR (CLEAR); *COLOR,URINE YELLOW (YELLOW); *KETONES,URINE NEGATIVE (NEGATIVE); *UROBILINOGEN,URINE 0.2 E.U./dl (NORMAL); LEUKOCYTE ESTERASE ,URINE NEGATIVE (NEGATIVE); NITRITE, URINE NEGATIVE (NEGATIVE); PH,URINE 7.5 (5.0-8.0); UGLUCOSE NEGATIVE (NEGATIVE)
[2018-12-01 11:00] LABS: WBC,URINE 0-3 /HPF (0-3)
[2018-12-01 11:38] VITALS: BP 172/87
--- NOTE | 2018-12-01 13:30 | NUR ---
SUSY NOTIFIED ABOUT SON WANTING TO FEED PATIENT, LEGAL PROCESS SPECIALIST NOTIFIED THAT PATIENT WAS ABLE TO PASS SWALLOW TEST WITH THICK AND THIN LIQUID, SAID TO START PUREED DIET BUR WILL FOLLOW SWALLOW EVAL. ST DEPARTMENT NOTIFIED WILL TX PT IN AM PER VIVI FROM PT
--- NOTE | 2018-12-01 14:00 | NUR ---
SON AT BEDSIDE VERY SUPPORTIVE WITH CARE
[2018-12-01 16:32] VITALS: BP 149/84
--- NOTE | 2018-12-01 19:20 | NUR ---
Received patient lying in bed. AAOx3. In no acute distress. O2 at 3LPM via NC in place. O2 sat at 100%. Denies any pain or SOB. NSR on tele at 88/min. IV site on right hand intact and patent. IVF infusing. Needs assessed and attended to. Safety measure initiated and call hopkins within reach.
[2018-12-01 20:00] VITALS: BP 156/82
[2018-12-01] MEDS: CETIRIZINE HCL 10 MG TABLET PO SCH (21:03)
[2018-12-01] MEDS: SENNOSIDES 1 TABLET PO SCH (21:03)
[2018-12-01] MEDS: HYDROCODONE/APAP 5-325MG TABLET PO PRN (22:27)
[2018-12-02] VITALS: BP 125/71
[2018-12-02 04:00] VITALS: BP 155/82
[2018-12-02] MEDS: LEVOTHYROXINE SODIUM 88 MCG TABLET PO SCH (06:16)
--- NOTE | 2018-12-02 06:27 | NUR ---
AAOx3. In no acute distress. O2 at 3LPM via NC in place. O2 sat at 99%. Denies any further pain. Denies any SOB. NSR on tele at 72/min. IV site on right hand intact and patent. IVF infusing. Needs attended to. and met. Safety measure maintained and call hopkins within reach.
[2018-12-02 06:52] LABS: BASOPHILS # (AUTO) 0.1 K/uL (0.0-8.0); BASOPHILS % (AUTO) 1.9 % (0.0-2.0); EOSINOPHILS # (AUTO) 0.1 K/uL (0.0-0.7); EOSINOPHILS % (AUTO) 3.6 % (0.0-7.0); HEMOGLOBIN 11.5 g/dL (10.9-14.3); LYMPHOCYTES # (AUTO) 0.9 K/uL (20.0-40.0); LYMPHOCYTES % (AUTO) 24.5 % (20.5-51.5); MEAN CORPUSCULAR HEMOGLOBIN 31.1 uug (24.7-32.8); MEAN CORPUSCULAR HGB CONC 33 g/dL (32.3-35.6); MEAN CORPUSCULAR VOLUME 94.5 fL (75.5-95.3); MONOCYTES # (AUTO) 0.4 K/uL (2.0-10.0); MONOCYTES % (AUTO) 10.9 % (0.0-11.0); NEUTROPHILS # (AUTO) 2.2 K/uL (1.8-8.9); NEUTROPHILS % (AUTO) 59.1 % (38.5-71.5); PLATELET COUNT (AUTO) 162 K/uL (179-408); WHITE BLOOD COUNT (AUTO) 3.7 K/uL (3.8-11.8)
[2018-12-02 07:13] LABS: THYROID STIMULATING HORMONE 37.763 mIU/mL (0.358-3.740)
[2018-12-02 07:23] LABS: CARBON DIOXIDE 27 mmol/L (21-32); CHLORIDE 108 mmol/L (98-107); CHOLESTEROL 163 mg/dL (<200); CREATININE 0.6 mg/dL (0.6-1.3); GLUCOSE 83 mg/dL (74-106); HDL CHOLESTEROL 67 mg/dL (40-60); MAGNESIUM 2.2 mg/dL (1.8-2.4); PHOSPHOROUS 3.7 mg/dL (2.5-4.9); POTASSIUM 4.4 mmol/L (3.5-5.1); TRIGLYCERIDES 44 MG/DL (30-150); UREA NITROGEN, BLOOD 7 mg/dL (7-18)
[2018-12-02] MEDS: GABAPENTIN 300 MG CAPSULE PO SCH ×3 (08:53→16:36)
[2018-12-02] MEDS: DOCUSATE SODIUM 100 MG CAPSULE PO SCH ×2 (08:53→16:37)
[2018-12-02] MEDS: BACLOFEN 20 MG TABLET PO SCH ×3 (08:53→16:36)
[2018-12-02] MEDS: MIRALAX 17 GM POWD.PACK PO SCH (08:53)
[2018-12-02] MEDS: SERTRALINE HCL 50 MG TABLET PO SCH (08:53)
[2018-12-02] MEDS: TIZANIDINE HCL 4 MG TABLET PO SCH ×2 (08:53→16:36)
[2018-12-02] MEDS: SIMETHICONE 80 MG TAB.CHEW PO SCH ×2 (08:53→16:36)
[2018-12-02] MEDS: Z GUARD REMEDY PASTE 57 GM TUBE TOP SCH ×3 (09:08→16:36)
[2018-12-02] MEDS: ENOXAPARIN SODIUM 40 MG/0.4 ML DISP.SYRIN SQ SCH (09:09)
--- NOTE | 2018-12-02 09:34 | NUR ---
1657 Spoke to son MELISSA, who will be bringing in patient's home medication Inositol today after work. Pharmacy made aware.
--- NOTE | 2018-12-02 10:03 | NUR ---
INFORMATION SENT: FACESHEET,24 HOURS REPORT,H&P,IMAGING,UR 12/01 INSURANCE NAME: SUDHA ROSADO FAX NUMBER: [phone] FAX SENT
[2018-12-02] MEDS: ALBUTEROL SULFATE 2.5 MG/ 0.5 ML NEBU NEB PRN (10:30)
[2018-12-02] MEDS: IPRATROPIUM BROMIDE 0.5 MG/2.5 ML NEBU NEB PRN (10:30)
--- NOTE | 2018-12-02 11:46 | NUR ---
Changed IV access dressing 1125 Patient seen by Speech therapy, changed to mechanical soft ground and thin liquids aspiration precautions implemented
[2018-12-02 11:49] VITALS: BP 140/75
[2018-12-02] MEDS: IV NS 1000 ML 1,000 ML IV PRN (15:18)
[2018-12-02 15:51] VITALS: BP 137/74
--- NOTE | 2018-12-02 18:23 | NUR ---
Patient resting in bed, with HOB elevated. No complaints of pain or distress noted. 1x PRN breathing treatment today. Skin precautions implemented, wound care done. Patient is on an air mattress with SCD's on. Bed is in low locked position with alarm set. Will endorse care to oncoming shift.
--- NOTE | 2018-12-02 19:20 | NUR ---
Received patient lying in bed. AAOx3. VS WNL. In no acute distress. O2 at 3LPM via NC in place. O2 sat at 98%. Denies any SOB. Complained of generalized pain. Will provide [place] PRN per order. NSR on tele at 74/min. IV site on right hand intact and patent. IVF infusing. Needs assessed and attended to. Son at bedside. Safety measure initiated and call hopkins within reach.
[2018-12-02 20:00] VITALS: BP 138/72
[2018-12-02] MEDS: CETIRIZINE HCL 10 MG TABLET PO SCH (20:21)
[2018-12-02] MEDS: HYDROCODONE/APAP 5-325MG TABLET PO PRN (20:26)
[2018-12-02] MEDS: SENNOSIDES 1 TABLET PO SCH (20:27)
[2018-12-03] VITALS: BP 154/80
[2018-12-03 04:00] VITALS: BP 156/75
[2018-12-03] MEDS: IPRATROPIUM BROMIDE 0.5 MG/2.5 ML NEBU NEB PRN (05:13)
[2018-12-03] MEDS: ALBUTEROL SULFATE 2.5 MG/ 0.5 ML NEBU NEB PRN (05:14)
[2018-12-03] MEDS: LEVOTHYROXINE SODIUM 88 MCG TABLET PO SCH (06:10)
--- NOTE | 2018-12-03 06:13 | NUR ---
Slept well last night. Remains AOx3. O2 at 3LPM via NC in place. Denies any further pain. Denies any SOB. Breathing treatment x1 given by RT/Victor Hugo. NSR on tele at 68/min. IV site on right hand intact and patent. IVF infusing. Needs attended to and met. Safety measure maintained and call hopkins within reach.
[2018-12-03 07:25] LABS: BASOPHILS # (AUTO) 0.1 K/uL (0.0-8.0); BASOPHILS % (AUTO) 1.4 % (0.0-2.0); EOSINOPHILS # (AUTO) 0.1 K/uL (0.0-0.7); EOSINOPHILS % (AUTO) 2.6 % (0.0-7.0); HEMATOCRIT 36.6 % (31.2-41.9); LYMPHOCYTES # (AUTO) 1.1 K/uL (20.0-40.0); LYMPHOCYTES % (AUTO) 26.9 % (20.5-51.5); MEAN CORPUSCULAR HEMOGLOBIN 31.2 uug (24.7-32.8); MEAN CORPUSCULAR HGB CONC 33 g/dL (32.3-35.6); MEAN CORPUSCULAR VOLUME 94.8 fL (75.5-95.3); MONOCYTES # (AUTO) 0.4 K/uL (2.0-10.0); MONOCYTES % (AUTO) 10.3 % (0.0-11.0); NEUTROPHILS # (AUTO) 2.3 K/uL (1.8-8.9); NEUTROPHILS % (AUTO) 58.8 % (38.5-71.5); PLATELET COUNT (AUTO) 154 K/uL (179-408); RED BLOOD CELL COUNT(AUTO) 3.86 MIL/uL (3.63-4.92)
[2018-12-03 07:28] LABS: CARBON DIOXIDE 26 mmol/L (21-32); CHLORIDE 105 mmol/L (98-107); CREATININE 0.6 mg/dL (0.6-1.3); GLUCOSE 83 mg/dL (74-106); POTASSIUM 3.8 mmol/L (3.5-5.1); UREA NITROGEN, BLOOD 9 mg/dL (7-18)
--- NOTE | 2018-12-03 07:30 | NUR ---
PATIENT RECEIVED THIS AM AWAKE AND ALERT PLEASANT ON APPROACH, REMAINS ON O2 VIA NASAL CANULA @ 3 LITERS. PATIENT DENIES ANY DISTRESS NO PAIN REPORTED. CONTINUE TO MONITOR SIDE RAILS UP X2 BED IN LOW POSITION, CALL LIGHT WITHIN REACH, ABLE TO VERBALIZE AND RETURN DEMONSTRATION HOW TO USE CALL LIGHT. DRY ERASE BOARD UPDATED.
--- NOTE | 2018-12-03 07:40 | NUR ---
INFORMATION SENT: FACESHEET,PROGRESS NOTES 12/02,UR-12/02,24 HOURS REPORT INSURANCE NAME: [facility] FAX NUMBER: [phone] FAX SENT
[2018-12-03] MEDS: SIMETHICONE 80 MG TAB.CHEW PO SCH (08:58)
[2018-12-03] MEDS: GABAPENTIN 300 MG CAPSULE PO SCH ×2 (08:59→13:47)
[2018-12-03] MEDS: BACLOFEN 20 MG TABLET PO SCH ×2 (08:59→13:47)
[2018-12-03] MEDS: SERTRALINE HCL 50 MG TABLET PO SCH (08:59)
[2018-12-03] MEDS: TIZANIDINE HCL 4 MG TABLET PO SCH (08:59)
[2018-12-03] MEDS: DOCUSATE SODIUM 100 MG CAPSULE PO SCH (09:00)
[2018-12-03] MEDS: MIRALAX 17 GM POWD.PACK PO SCH (09:00)
[2018-12-03] MEDS: Z GUARD REMEDY PASTE 57 GM TUBE TOP SCH ×3 (09:00→13:47)
[2018-12-03] MEDS: ENOXAPARIN SODIUM 40 MG/0.4 ML DISP.SYRIN SQ SCH (09:11)
--- NOTE | 2018-12-03 10:00 | NUR ---
PATIENT COMPLIANT AND COOPERATIVE WITH MEDICATIONS AND CARE, FREQUENT PERICARE PROVIDED ON AIR MATTRESS REPOSITIONED EVERY 2 HOURS, EXCORIATION TO BUTTOCKS CLEANED WITH NS, PAT DRY HYDROGEL AND COVER WITH MEPELEX, Z GUARD TO BUTTOCKS.
[2018-12-03 11:18] VITALS: BP 154/86
[2018-12-03] MEDS ORDERED: ALBU8.5H8 INH (11:21)
--- NOTE | 2018-12-03 11:28 | NUR ---
WOUND CARE CONSULT PATIENT SEEN AND SKIN INTEGRITY EVALUATED. PLEASE SEE CORRESPONDENCE DICTATOR ASSESSMENT IN PCS FOR TODAY. PATIENT WITH MICAH AT 9, ALL PRESSURE ULCER PREVENTION MEASURES ARE NOTED TO BE IN PLACE. RECOMMEND DAILY HYDROGEL WITH MEPILEX TREATMENT PLAN. ALL DISCUSSED WITH NURSING AT THE BEDSIDE. WILL SEE PRN.
--- NOTE | 2018-12-03 12:06 | NUR ---
PATIENT MEDICALLY CLEARED FOR DISCHARGE, PATIENT REMOVED FROM OXYGEN AT 1120AM, TOLERATING WELL. DENIES ANY DISTRESS, 02 AT 98-100% ON ROOM AIR FOR THE LAST 45 MINUTES, CONTINUE TO MONITOR
--- NOTE | 2018-12-03 12:52 | NUR ---
Patient remains stable. no SOB noted or reported, 02 98% on room air at this time
[2018-12-03 15:04] VITALS: BP_SYST 131; BP_SYST 149; BP_DIAS 90; BP_DIAS 91
--- NOTE | 2018-12-03 15:35 | NUR ---
Discharge Note patient remains stable on room air. no SOB no wheezing noted. compliant with meds and care, cooperative with POC. patient assisted with adls, pericare and repositioning, instructed on pressure relief post discharge, patient instructed on discharge meds by PharmacistRalph. patient instructed to : Followup with PCP within one week Continue home medications Prescriptions written for albuterol as needed; take as directed Seek immediate medical attention for worsening of symptoms, severe headache, dizziness, vertigo, chest pain, shortness of breath, palpitations, abdominal pain, abdominal distention, intractable nausea and vomiting, uncontrolled diarrhea, hematochezia, melena, weakness, loss of consciousness, neurological deficit, or any other emergent concerns. Patient verbalized understanding. unable to sign paperwork, advanced ALS,co-signed with BRIGIDO Lacey. patient belongings returned and accounted for. questions and concerns addressed. IV line removed. ID band removed. Photo taken of sacrum. wound care advised for post discharge. Patient transferred to wheel chair with assist by physical therapy, tolerated well. discharge back to [facility] Via facility transport.
--- NOTE | 2018-12-06 09:06 | NUR ---
INFORMATION SENT: FACESHEET,IMAGING,DISCHARGE SUMMARY INSURANCE NAME: SUDHA VENCES [facility] FAX NUMBER: [phone] FAX SENT
== END 2018-12-03 15:25 | DRG 56 ==
LOC: ER 22:32 → TELE3 12-01 02:04
PROVIDERS: ADMIT Nurse Practitioner Acute Care; ATTEND Nurse Practitioner Acute Care
DX: G12.21 Amyotrophic lateral sclerosis (principal); G93.41 Metabolic encephalopathy; J98.11 Atelectasis; D68.59 Other primary thrombophilia; G12.23 Primary lateral sclerosis; R09.02 Hypoxemia; G89.4 Chronic pain syndrome; E03.9 Hypothyroidism, unspecified; I67.2 Cerebral atherosclerosis; Z90.49 Acquired absence of other specified parts of digestive tract; Z86.73 Personal history of transient ischemic attack (TIA), and cerebral infarction without residual deficits; Z79.899 Other long term (current) drug therapy; Z91.5 Personal history of self-harm; F32.9 Major depressive disorder, single episode, unspecified; D69.6 Thrombocytopenia, unspecified; Z74.09 Other reduced mobility
CPT/HCPCS: 36415; 36600; 70030-TC; 70450; 71045; 71275; 83605; 83735; 84100; 84443; 85025; 87040; 87086; 92523; 92526; 92610; 93005; 94640; 94664; A4663; C1758; G0378; J1650; J3590; J7030; J7050; Q9967

== ENCOUNTER 2018-12-25 22:03 | Inpatient (IN) | payer BC ==
[~2018-12-25] VITALS: Ht 152.4 cm; Wt 52.6 kg
[~2018-12-25 22:03] MED LIST changes: +ALBU8.5H8 INH; -CEPH500C2 PO; -LACT1CAP69 PO
[2018-12-25] MEDS ORDERED: BISA10SU61 PR (22:25)
[2018-12-25] MEDS ORDERED: PETR113O (22:27)
[2018-12-25] MEDS ORDERED: LIDO5CRE18 (22:30)
[2018-12-25] MEDS ORDERED: ALBUTEROL SULFATE 2.5 MG/ 0.5 ML NEBU ONE (22:45)
[2018-12-25] MEDS ORDERED: ALBUTEROL SULFATE 2.5 MG/3 ML NEBU NEB ONE (22:45)
[2018-12-25] MEDS ORDERED: IPRATROPIUM BROMIDE 0.5 MG/2.5 ML NEBU NEB ONE (22:45)
[2018-12-25] MEDS ORDERED: IPRATROPIUM BROMIDE 0.5 MG/2.5 ML NEBU ONE (22:45)
[2018-12-25 22:49] LABS: ABG BASE EXCESS 0.7 mmol/L; ABG HCO3 25.2 mmol/L; ABG PCO2 39.6 mmHg (35.0-45.0); ABG PH 7.421 (7.350-7.450); ABG PO2 76.1 mmHg (75.0-100.0); ABG SITE LEFT RADIAL; ABG TOTAL HEMOGLOBIN 12.4 G/dL (12.0-16.0); COHb 1.1 % (0.5-1.5); MetHb 0.2 % (0.0-1.5); O2Hb 94.6 % (94.0-97.0); VENT MODE Room Air
[2018-12-25 22:52] LABS: BASOPHILS # (AUTO) 0.1 K/uL (0.0-8.0); BASOPHILS % (AUTO) 1.4 % (0.0-2.0); EOSINOPHILS # (AUTO) 0.3 K/uL (0.0-0.7); HEMATOCRIT 35.5 % (31.2-41.9); HEMOGLOBIN 11.8 g/dL (10.9-14.3); LYMPHOCYTES # (AUTO) 0.9 K/uL (20.0-40.0); LYMPHOCYTES % (AUTO) 19.8 % (20.5-51.5); MEAN CORPUSCULAR HEMOGLOBIN 31.5 uug (24.7-32.8); MEAN CORPUSCULAR HGB CONC 33 g/dL (32.3-35.6); MEAN CORPUSCULAR VOLUME 95.1 fL (75.5-95.3); MONOCYTES # (AUTO) 0.6 K/uL (2.0-10.0); MONOCYTES % (AUTO) 12.8 % (0.0-11.0); NEUTROPHILS # (AUTO) 2.8 K/uL (1.8-8.9); PLATELET COUNT (AUTO) 187 K/uL (179-408); RED BLOOD CELL COUNT(AUTO) 3.74 MIL/uL (3.63-4.92); WHITE BLOOD COUNT (AUTO) 4.7 K/uL (3.8-11.8)
[2018-12-25 23:07] LABS: ALANINE AMINOTRANSFERASE 311 U/L (14-59); ALKALINE PHOSPHATASE 162 U/L (50-136); ASPARTATE AMINOTRANSFERASE 377 U/L (15-37); BILIRUBIN,DIRECT 0.1 mg/dL (0.0-0.2); BILIRUBIN,TOTAL 0.2 mg/dL (0.2-1.0); CARBON DIOXIDE 27 mmol/L (21-32); CHLORIDE 103 mmol/L (98-107); CREATININE 0.7 mg/dL (0.6-1.3); GLUCOSE 104 mg/dL (74-106); POTASSIUM 4.6 mmol/L (3.5-5.1); TOTAL PROTEIN, SERUM 7.7 g/dL (6.4-8.2); UREA NITROGEN, BLOOD 20 mg/dL (7-18)
[2018-12-26 00:51] LABS: *BILIRUBIN,URIN NEGATIVE (NEGATIVE); *BLOOD, URINE 2+ (NEGATIVE); *CLARITY,URINE TURBID (CLEAR); *COLOR,URINE YELLOW (YELLOW); *KETONES,URINE TRACE (NEGATIVE); *UROBILINOGEN,URINE 0.2 E.U./dl (NORMAL); LEUKOCYTE ESTERASE ,URINE 3+ (NEGATIVE); NITRITE, URINE POSITIVE (NEGATIVE); PH,URINE 6.5 (5.0-8.0); UGLUCOSE NEGATIVE (NEGATIVE)
[2018-12-26 01:02] LABS: BACTERIA,URINE MANY /HPF (NONE SEEN); RBC,URINE 20-50 /HPF (0-3); SQUAMOUS EPITHELIAL CELL,UR MANY /HPF (NONE SEEN); WBC,URINE TNTC /HPF (0-3)
[2018-12-26] MEDS ORDERED: CEFTRIAXONE 1 G VIAL ONE (02:29)
[2018-12-26] MEDS ORDERED: methylPREDNISolone SOD SUCC 125 MG/2 ML VIAL ONE (02:29)
[2018-12-26] MEDS ORDERED: methylPREDNISolone SOD SUCC 125 MG/2 ML VIAL IV ONE (02:30)
[2018-12-26] MEDS ORDERED: CEFTRIAXONE 2 G in IV DEXTROSE 5% 100 ML IV ONE (02:30)
[2018-12-26 03:04] VITALS: BP 141/79
[2018-12-26] MEDS ORDERED: ACETAMINOPHEN 325 MG TABLET PO PRN (04:15)
[2018-12-26] MEDS ORDERED: MAGNESIUM HYDROXIDE 30 ML LIQUID UDC PO PRN (04:15)
[2018-12-26] MEDS ORDERED: ALBUTEROL SULFATE 2.5 MG/3 ML NEBU NEB PRN (04:15)
[2018-12-26] MEDS ORDERED: ONDANSETRON 4 MG/2 ML VIAL IV PRN (04:15)
[2018-12-26] MEDS ORDERED: IPRATROPIUM BROMIDE 0.5 MG/2.5 ML NEBU NEB PRN (04:15)
[2018-12-26] MEDS ORDERED: Z GUARD REMEDY PASTE 57 GM TUBE TOP PRN (04:15)
[2018-12-26] MEDS ORDERED: methylPREDNISolone SOD SUCC 125 MG/2 ML VIAL IV SCH ×2 (06:00→14:00)
[2018-12-26] MEDS: PANTOPRAZOLE SODIUM 40 MG TABLET.DR PO SCH (06:27)
[2018-12-26] MEDS: ENOXAPARIN SODIUM 40 MG/0.4 ML DISP.SYRIN SQ SCH (08:23)
[2018-12-26 09:44] LABS: BASOPHILS % (AUTO) 0.6 % (0.0-2.0); EOSINOPHILS % (AUTO) 0.2 % (0.0-7.0); HEMATOCRIT 36.8 % (31.2-41.9); HEMOGLOBIN 11.9 g/dL (10.9-14.3); LYMPHOCYTES # (AUTO) 0.3 K/uL (20.0-40.0); LYMPHOCYTES % (AUTO) 5.5 % (20.5-51.5); MEAN CORPUSCULAR HEMOGLOBIN 30.8 uug (24.7-32.8); MEAN CORPUSCULAR HGB CONC 32 g/dL (32.3-35.6); MEAN CORPUSCULAR VOLUME 95.5 fL (75.5-95.3); MONOCYTES % (AUTO) 0.9 % (0.0-11.0); NEUTROPHILS # (AUTO) 4.6 K/uL (1.8-8.9); NEUTROPHILS % (AUTO) 92.8 % (38.5-71.5); PLATELET COUNT (AUTO) 176 K/uL (179-408); RED BLOOD CELL COUNT(AUTO) 3.86 MIL/uL (3.63-4.92); WHITE BLOOD COUNT (AUTO) 4.9 K/uL (3.8-11.8)
[2018-12-26 09:57] LABS: ALANINE AMINOTRANSFERASE 238 U/L (14-59); ALKALINE PHOSPHATASE 139 U/L (50-136); ASPARTATE AMINOTRANSFERASE 184 U/L (15-37); BILIRUBIN,DIRECT 0.1 mg/dL (0.0-0.2); BILIRUBIN,TOTAL 0.2 mg/dL (0.2-1.0); CARBON DIOXIDE 24 mmol/L (21-32); CHLORIDE 105 mmol/L (98-107); CREATININE 0.7 mg/dL (0.6-1.3); GLUCOSE 230 mg/dL (74-106); POTASSIUM 4.1 mmol/L (3.5-5.1); TOTAL PROTEIN, SERUM 7.5 g/dL (6.4-8.2); UREA NITROGEN, BLOOD 14 mg/dL (7-18)
[2018-12-26 11:06] VITALS: BP 144/80
[2018-12-26] MEDS ORDERED: BISACODYL 10 MG SUPP.RECT RC PRN (11:30)
[2018-12-26] MEDS ORDERED: LORAZEPAM 0.5 MG TABLET PO PRN (11:30)
[2018-12-26] MEDS ORDERED: ALBUTEROL SULFATE 8 GM HFA.AER.AD INH PRN (11:30)
[2018-12-26] MEDS ORDERED: Medication Not On Formulary EA (Gabapentin 600 MG) PO SCH (13:00)
[2018-12-26] MEDS: BACLOFEN 20 MG TABLET PO SCH ×2 (13:14→16:43)
[2018-12-26] MEDS: methylPREDNISolone SOD SUCC 40 MG/ML VIAL IV SCH ×2 (14:08→21:29)
[2018-12-26 15:38] VITALS: BP 147/86
[2018-12-26] MEDS: SIMETHICONE 80 MG TAB.CHEW PO SCH (16:43)
[2018-12-26] MEDS: DOCUSATE SODIUM 100 MG CAPSULE PO SCH (16:43)
[2018-12-26 17:21] LABS: CREATINE KINASE, TOTAL 177 U/L (26-192)
[2018-12-26 19:54] VITALS: BP 159/90
[2018-12-26] MEDS: SENNOSIDES 1 TABLET PO SCH (20:32)
[2018-12-26] MEDS: GABAPENTIN 300 MG CAPSULE PO SCH (20:32)
[2018-12-26] MEDS: TIZANIDINE HCL 4 MG TABLET PO SCH (20:32)
[2018-12-26] MEDS: CETIRIZINE HCL 10 MG TABLET PO SCH (20:32)
[2018-12-27] MEDS: HYDROCODONE/APAP 5-325MG TABLET PO PRN (00:27)
[2018-12-27] MEDS: CEFTRIAXONE 2 G in IV DEXTROSE 5% 100 ML IV SCH (01:32)
[2018-12-27] MEDS: ZOLPIDEM 5 MG TABLET PO PRN ×2 (01:38→21:57)
[2018-12-27] MEDS: LEVOTHYROXINE SODIUM 88 MCG TABLET PO SCH (05:50)
[2018-12-27] MEDS: methylPREDNISolone SOD SUCC 40 MG/ML VIAL IV SCH ×3 (05:50→21:46)
[2018-12-27] MEDS: PANTOPRAZOLE SODIUM 40 MG TABLET.DR PO SCH (05:50)
[2018-12-27 06:27] VITALS: BP 146/78
[2018-12-27 06:55] LABS: BASOPHILS % (AUTO) 0.2 % (0.0-2.0); HEMATOCRIT 33.1 % (31.2-41.9); HEMOGLOBIN 10.9 g/dL (10.9-14.3); LYMPHOCYTES # (AUTO) 0.6 K/uL (20.0-40.0); LYMPHOCYTES % (AUTO) 9.5 % (20.5-51.5); MEAN CORPUSCULAR HEMOGLOBIN 31.1 uug (24.7-32.8); MEAN CORPUSCULAR HGB CONC 33 g/dL (32.3-35.6); MEAN CORPUSCULAR VOLUME 94.7 fL (75.5-95.3); MONOCYTES # (AUTO) 0.5 K/uL (2.0-10.0); MONOCYTES % (AUTO) 8.9 % (0.0-11.0); NEUTROPHILS # (AUTO) 4.9 K/uL (1.8-8.9); NEUTROPHILS % (AUTO) 81.4 % (38.5-71.5); PLATELET COUNT (AUTO) 174 K/uL (179-408)
[2018-12-27 07:12] LABS: ALANINE AMINOTRANSFERASE 152 U/L (14-59); ALKALINE PHOSPHATASE 103 U/L (50-136); ASPARTATE AMINOTRANSFERASE 70 U/L (15-37); BILIRUBIN,DIRECT 0.1 mg/dL (0.0-0.2); BILIRUBIN,TOTAL 0.2 mg/dL (0.2-1.0); CARBON DIOXIDE 24 mmol/L (21-32); CHLORIDE 105 mmol/L (98-107); CHOLESTEROL 175 mg/dL (<200); CREATININE 0.5 mg/dL (0.6-1.3); GLUCOSE 119 mg/dL (74-106); HDL CHOLESTEROL 75 mg/dL (40-60); MAGNESIUM 2.1 mg/dL (1.8-2.4); PHOSPHOROUS 3.4 mg/dL (2.5-4.9); POTASSIUM 3.9 mmol/L (3.5-5.1); TRIGLYCERIDES 49 MG/DL (30-150); UREA NITROGEN, BLOOD 18 mg/dL (7-18)
[2018-12-27 07:23] LABS: THYROID STIMULATING HORMONE 1.622 mIU/mL (0.358-3.740)
[2018-12-27] MEDS ORDERED: Medication Not On Formulary EA (Sertraline Hcl (Zoloft) 25 MG) PO SCH (09:00)
[2018-12-27] MEDS ORDERED: POLYETHYLENE GLYCOL 3350 238 GM POWDER PO SCH (09:00)
[2018-12-27] MEDS: ENOXAPARIN SODIUM 40 MG/0.4 ML DISP.SYRIN SQ SCH (09:30)
[2018-12-27] MEDS: GABAPENTIN 300 MG CAPSULE PO SCH ×2 (10:23→21:35)
[2018-12-27] MEDS: BACLOFEN 20 MG TABLET PO SCH ×3 (10:23→16:34)
[2018-12-27] MEDS: SERTRALINE HCL 50 MG TABLET PO SCH (10:23)
[2018-12-27] MEDS: DANTROLENE SODIUM 25 MG CAPSULE PO SCH (10:24)
[2018-12-27] MEDS: SIMETHICONE 80 MG TAB.CHEW PO SCH ×2 (10:24→16:34)
[2018-12-27] MEDS: DOCUSATE SODIUM 100 MG CAPSULE PO SCH ×2 (10:24→16:34)
[2018-12-27] MEDS: MIRALAX 17 GM POWD.PACK PO SCH (10:24)
[2018-12-27] MEDS: TIZANIDINE HCL 4 MG TABLET PO SCH ×2 (10:26→20:54)
[2018-12-27] MEDS ORDERED: BISACODYL 10 MG SUPP.RECT RC ONE (10:45)
[2018-12-27 11:40] VITALS: BP 153/82
[2018-12-27] MEDS ORDERED: Z GUARD REMEDY PASTE 57 GM TUBE TOP PRN (14:30)
[2018-12-27 15:49] VITALS: BP 153/78
[2018-12-27 20:00] VITALS: BP 143/78
[2018-12-27] MEDS: SENNOSIDES 1 TABLET PO SCH (20:37)
[2018-12-27] MEDS: CETIRIZINE HCL 10 MG TABLET PO SCH (20:54)
[2018-12-27] MEDS: Z GUARD REMEDY PASTE 57 GM TUBE TOP SCH (20:55)
[2018-12-28] MEDS: HYDROCODONE/APAP 5-325MG TABLET PO PRN ×2 (00:20→20:02)
[2018-12-28] MEDS: CEFTRIAXONE 2 G in IV DEXTROSE 5% 100 ML IV SCH (01:32)
[2018-12-28 04:02] VITALS: BP 155/86
[2018-12-28] MEDS: methylPREDNISolone SOD SUCC 40 MG/ML VIAL IV SCH ×3 (05:44→21:02)
[2018-12-28] MEDS: LEVOTHYROXINE SODIUM 88 MCG TABLET PO SCH (06:39)
[2018-12-28] MEDS: PANTOPRAZOLE SODIUM 40 MG TABLET.DR PO SCH (06:39)
[2018-12-28 08:08] LABS: HEPATITIS A AB, IgM Negative (Negative); HEPATITIS A AB, TOTAL Negative (Negative); HEPATITIS B SURFACE AB Non Reactive (.); HEPATITIS B SURFACE AG Negative (Negative)
[2018-12-28] MEDS: GABAPENTIN 300 MG CAPSULE PO SCH ×2 (08:51→20:53)
[2018-12-28] MEDS: TIZANIDINE HCL 4 MG TABLET PO SCH ×2 (08:51→20:54)
[2018-12-28] MEDS: BACLOFEN 20 MG TABLET PO SCH ×3 (08:51→16:45)
[2018-12-28] MEDS: SIMETHICONE 80 MG TAB.CHEW PO SCH ×2 (08:51→16:44)
[2018-12-28] MEDS: DOCUSATE SODIUM 100 MG CAPSULE PO SCH ×2 (08:51→16:45)
[2018-12-28] MEDS: DANTROLENE SODIUM 25 MG CAPSULE PO SCH (08:52)
[2018-12-28] MEDS: MIRALAX 17 GM POWD.PACK PO SCH (08:52)
[2018-12-28] MEDS: ENOXAPARIN SODIUM 40 MG/0.4 ML DISP.SYRIN SQ SCH (08:53)
[2018-12-28] MEDS: Z GUARD REMEDY PASTE 57 GM TUBE TOP SCH ×2 (08:53→20:54)
[2018-12-28] MEDS: SERTRALINE HCL 50 MG TABLET PO SCH (08:55)
[2018-12-28 11:05] VITALS: BP 144/82
[2018-12-28 15:09] VITALS: BP 147/83
[2018-12-28 19:22] VITALS: BP 150/76
[2018-12-28] MEDS: CEphaleXIN 500 MG CAPSULE PO SCH (20:53)
[2018-12-28] MEDS: CETIRIZINE HCL 10 MG TABLET PO SCH (20:54)
[2018-12-28] MEDS: SENNOSIDES 1 TABLET PO SCH (20:54)
[2018-12-28] MEDS: ZOLPIDEM 5 MG TABLET PO PRN (23:08)
[2018-12-29] MEDS ORDERED: CEFTRIAXONE 1 G in IV DEXTROSE 5% 50 ML IV SCH (02:00)
[2018-12-29 03:19] VITALS: BP 161/84
[2018-12-29 05:00] VITALS: BP 152/72
[2018-12-29 05:06] LABS: HEPATITIS Be ANTIGEN Negative (Negative)
[2018-12-29] MEDS: HYDROCODONE/APAP 5-325MG TABLET PO PRN (05:56)
[2018-12-29] MEDS: PANTOPRAZOLE SODIUM 40 MG TABLET.DR PO SCH (06:03)
[2018-12-29] MEDS: LEVOTHYROXINE SODIUM 88 MCG TABLET PO SCH (06:03)
[2018-12-29 07:42] LABS: ALANINE AMINOTRANSFERASE 91 U/L (14-59); ASPARTATE AMINOTRANSFERASE 23 U/L (15-37); CARBON DIOXIDE 26 mmol/L (21-32); CHLORIDE 105 mmol/L (98-107); CREATININE 0.6 mg/dL (0.6-1.3); GLUCOSE 98 mg/dL (74-106); POTASSIUM 4.1 mmol/L (3.5-5.1); UREA NITROGEN, BLOOD 15 mg/dL (7-18)
[2018-12-29] MEDS: DOCUSATE SODIUM 100 MG CAPSULE PO SCH ×2 (08:16→16:07)
[2018-12-29] MEDS: TIZANIDINE HCL 4 MG TABLET PO SCH ×2 (08:16→20:45)
[2018-12-29] MEDS: BACLOFEN 20 MG TABLET PO SCH ×3 (08:16→16:07)
[2018-12-29] MEDS: GABAPENTIN 300 MG CAPSULE PO SCH ×2 (08:16→20:45)
[2018-12-29] MEDS: CEphaleXIN 500 MG CAPSULE PO SCH ×2 (08:16→20:45)
[2018-12-29] MEDS: SIMETHICONE 80 MG TAB.CHEW PO SCH ×2 (08:16→16:07)
[2018-12-29] MEDS: methylPREDNISolone SOD SUCC 40 MG/ML VIAL IV SCH (08:17)
[2018-12-29] MEDS: MIRALAX 17 GM POWD.PACK PO SCH (08:17)
[2018-12-29] MEDS: DANTROLENE SODIUM 25 MG CAPSULE PO SCH (08:17)
[2018-12-29] MEDS: SERTRALINE HCL 50 MG TABLET PO SCH (08:20)
[2018-12-29] MEDS: ENOXAPARIN SODIUM 40 MG/0.4 ML DISP.SYRIN SQ SCH (08:21)
[2018-12-29] MEDS: Z GUARD REMEDY PASTE 57 GM TUBE TOP SCH ×2 (08:28→20:49)
[2018-12-29 11:40] VITALS: BP 155/86
[2018-12-29 15:49] VITALS: BP 149/70
[2018-12-29 19:18] VITALS: BP 129/68
[2018-12-29] MEDS: CETIRIZINE HCL 10 MG TABLET PO SCH (20:45)
[2018-12-29] MEDS: SENNOSIDES 1 TABLET PO SCH (20:45)
[2018-12-29] MEDS: ZOLPIDEM 5 MG TABLET PO PRN (22:54)
[2018-12-30 03:24] VITALS: BP 155/80
[2018-12-30] MEDS: PANTOPRAZOLE SODIUM 40 MG TABLET.DR PO SCH (06:04)
[2018-12-30] MEDS: LEVOTHYROXINE SODIUM 88 MCG TABLET PO SCH (06:04)
[2018-12-30] MEDS ORDERED: methylPREDNISolone SOD SUCC 40 MG/ML VIAL IV SCH (09:00)
[2018-12-30] MEDS: CEphaleXIN 500 MG CAPSULE PO SCH (09:28)
[2018-12-30] MEDS: DANTROLENE SODIUM 25 MG CAPSULE PO SCH (09:28)
[2018-12-30] MEDS: BACLOFEN 20 MG TABLET PO SCH ×2 (09:28→12:38)
[2018-12-30] MEDS: DOCUSATE SODIUM 100 MG CAPSULE PO SCH (09:28)
[2018-12-30] MEDS: SIMETHICONE 80 MG TAB.CHEW PO SCH (09:30)
[2018-12-30] MEDS: GABAPENTIN 300 MG CAPSULE PO SCH (09:30)
[2018-12-30] MEDS: TIZANIDINE HCL 4 MG TABLET PO SCH (09:30)
[2018-12-30] MEDS: MIRALAX 17 GM POWD.PACK PO SCH (09:30)
[2018-12-30] MEDS: SERTRALINE HCL 50 MG TABLET PO SCH (09:31)
[2018-12-30] MEDS: Z GUARD REMEDY PASTE 57 GM TUBE TOP SCH (09:31)
[2018-12-30] MEDS: ENOXAPARIN SODIUM 40 MG/0.4 ML DISP.SYRIN SQ SCH (09:32)
[2018-12-30 11:28] VITALS: BP 142/73
== END 2018-12-30 13:15 | DRG 202 ==
LOC: ER 22:03 → MEDSURG3 12-26 02:44
PROVIDERS: ADMIT Hospitalist; ATTEND Nurse Practitioner Acute Care
DX: J45.901 Unspecified asthma with (acute) exacerbation (principal); J96.21 Acute and chronic respiratory failure with hypoxia; G93.41 Metabolic encephalopathy; R53.2 Functional quadriplegia; N17.0 Acute kidney failure with tubular necrosis; N39.0 Urinary tract infection, site not specified; D68.59 Other primary thrombophilia; G12.21 Amyotrophic lateral sclerosis; B96.4 Proteus (mirabilis) (morganii) as the cause of diseases classified elsewhere; G89.4 Chronic pain syndrome; E03.9 Hypothyroidism, unspecified; Z90.49 Acquired absence of other specified parts of digestive tract; Z91.5 Personal history of self-harm; M43.12 Spondylolisthesis, cervical region; Z86.73 Personal history of transient ischemic attack (TIA), and cerebral infarction without residual deficits; E86.0 Dehydration; K83.8 Other specified diseases of biliary tract; M21.379 Foot drop, unspecified foot; Z79.899 Other long term (current) drug therapy
CPT/HCPCS: 36415; 36600; 70030-TC; 70360; 70450; 70490; 71045; 76700; 83605; 83735; 84100; 84443; 84450; 84460; 85025; 86704; 86705; 86706; 86708; 86709; 86803; 87040; 87077; 87086; 87340; 87350; 92526; 92610; 93005; A4663; C1758; G0378; J0696; J1650; J2920; J2930; J3535; J3590; J7040; J7060